=== PATIENT | male | born 1965 | race Caucasian/White ===

== ENCOUNTER 2019-08-11 21:50 | Inpatient (IN) ==
[2019-08-12] MEDS ORDERED: Naloxone 0.4 MG/ML INJ IVP PRN (00:28)
[2019-08-12] MEDS ORDERED: 0.9 % Sodium Chloride 1,000 ML IVC SCH (00:30)
--- NOTE | 2019-08-12 00:38 | Internal Med History&Physical ---
Date of Encounter: 08/12/19 Time of Encounter: 00:34 Internal Medicine - H&P: HPI Chief complaint: Bradycardia History of present illness: Mr. Raya is a 54 year old male with past medical history of hypertension, hyperlipidemia, seizures and atrial flutter/fib with slow ventricular response who presented initially to [facility] earlier today after his heart monitor company called around 1 PM to notify the patient that his monitor I detected multiple episodes of sinus pauses as long as 6.8 seconds with underlying atrial flutter and further added that he has had to notify patient's regional transfer liaison multiple times in the last few weeks because of increasing pauses and bradycardia. Patient was evaluated by Dr. Silva his regional transfer liaison on the fourth of this month who indicated no changes in medical management given that the patient was asymptomatic. Family states that they saw Dr. Silva on who ordered an echocardiogram and apparently increased his "blood pressure medicine" from 50 mg to 100 mg but the mother did not know the name of the medication that was increased. ED physician at [facility] discussed case with Dr Agueda robles who indicated that the cause of these may be due to sleep apnea and may not warrant intervention. Furthermore, she stated the monitoring company should not call unless pauses are 10 seconds. Given lack of symptoms, recommendation was for patient to follow-up with his physician this week. However, patient returned to [facility] later this afternoon after monitoring company informed him of a sinus pause of 13.5 seconds in the setting of atrial flutter without ventricular complexes. Patient again reported to be asymptomatic. During second evaluation patient's heart rate was noted to be in the 30s. External pacer pads were placed at [facility] but not used again because patient's mentation and blood pressure been remaining stable. On-call cardiology was again informed and recommended transfer to [facility] for further treatment. On my assessment patient was afebrile, hemodynamically stable with a heart rate in the 40s. Laboratory workup obtained at [facility] earlier this evening or relatively normal including patient's electrolytes and troponin. Pacemaker pads still in place. We will monitor on telemetry and observe overnight with cardiac evaluation to follow in the morning. Patient is full code for this admission. Past Med Surg Social Fam HX - Past Medical History Medical history: COPD, hyperlipidemia, hypertension, seizures, other Additional medical history: atrial flutter Psychiatric history: no psych history - Past Surgical History Additional surgical history: chest tube placement. rib fractures, collarbone surgery. robotic assisted right colon resection for colon mass - Social History Smoking Status: Current every day smoker Smokeless Tobacco Status: No Alcohol use: none Drug use: none - Family History Brother Hx Family Endocrine Disorder: Yes Internal Medicine - H&P: Meds Gabapentin [Neurontin] 600 mg PO BID 05/30/19 [History] Sodium Chloride [Sodium Chloride Tab] 1 gm PO TID 05/30/19 [History] amLODIPine [Norvasc] 5 mg PO BID 05/30/19 [History] carBAMazepine [Carbamazepine ER] 300 mg PO QID 05/30/19 [History] levETIRAcetam [Levetiracetam] 1,000 mg PO BID 05/30/19 [History] Albuterol Sulfate [Proventil Inhaler] 2 puff IH Q6HR 08/11/19 [History] Ipratropium/Albuterol Neb [Duoneb] 3 ml IH BID PRN 08/11/19 [History] Losartan Potassium [Cozaar] 100 mg PO DAILY 08/11/19 [History] Umeclidinium Brm/Vilanterol Tr [Anoro Ellipta 62.5-25 Mcg INH] 1 each IH DAILY PRN 08/11/19 [History] Allergy/AdvReac Type Severity Reaction Status Date / Time hydrochlorothiazide AdvReac Seizure Verified 08/12/19 16:18 All Systems PM: A 10-system review of systems was performed and is negative for pertinent findings except as documented above in the HPI. - Constitutional Constitutional: no chills, no fever(s), no night sweats - EENT Eyes: no change in vision, no discharge, no pain, no photophobia Ears: no ear discharge, no ear pain, no tinnitus Nose, mouth and throat: no dysphagia, no nasal discharge, no neck pain, no sore throat - Cardiovascular Cardiovascular ROS IM: no chest pain, no diaphoresis, no dyspnea, no lightheadedness, no palpitations, no syncope - Respiratory Respiratory: no cough, no dyspnea, no wheezing, no excessive phlegm production - Gastrointestinal Gastrointestinal: no abdominal pain, no diarrhea, no hematemesis, no hematochezia, no melena, no nausea, no vomiting - Musculoskeletal Musculoskeletal ROS IM: no numbness, no tingling - Integumentary Integumentary IM: no rash, no unusual bruising - Neurological Neurological ROS: no confusion, no convulsions, no focal weakness, no numbness, no tingling, no tremor(s) - Hematologic/Lymphatic Hematologic/Lymphatic: no easy bruising - Constitutional Vitals: Temp Pulse Resp BP Pulse Ox 98.2 F 48 16 165/95 90 08/12/19 00:24 08/12/19 00:24 08/12/19 00:24 08/12/19 00:24 08/12/19 00:24 Exam: General: Alert and oriented Skin:Normal color, no rash, no lesions. HEENT:EOM, pupils equal, round and reactive. Cardiovascular:Normal S1 & S2, no rubs, murmurs or gallops. No JVD. Pulse regular. Lungs:Normal breath sounds, no wheezes or crackles. Abdomen:Soft, non-tender, no rigidity. Extremities:No deformity, no edema or tenderness, no joint swelling or clubbing. Neurological:Normal cognition and motor skills. Pulses:Carotid and radial pulses normal +2. Rest of the physical exam is non contributory Internal Med - H&P Results - Labs CBC & Chem 7: 08/12/19 01:26 08/12/19 01:26 - Assessment and Plan (1) Bradycardia Current Visit: No Status: Acute Assessment and plan: Patient presenting with asymptomatic bradycardia with heart rate in the 30s to 40s with periodic sinus pauses the largest of which was reported to be 13.5 seconds. Patient currently followed by Dr. Silva. Transferred for possible placement of pacemaker. No evidence of cardiac ischemia at this time. -Telemetry -We will keep patient NPO for possible pacemaker placement in the morning -Consult cardiology (2) Atrial flutter Current Visit: No Status: Acute Assessment and plan: History of atrial flutter/fibrillation with slow ventricular response. Patient currently not on anticoagulation due to history of seizure and high risk for bleed. -Continue telemetry Qualifiers: Atrial flutter type: unspecified Qualified Code(s): I48.92 - Unspecified atrial flutter (3) Essential hypertension Current Visit: No Status: Acute Assessment and plan: Blood pressure stable. We will monitor (4) Nicotine dependence Current Visit: No Status: Acute Qualifiers: Nicotine product type: cigarettes Substance use status: unspecified nicotine-induced disorder Qualified Code(s): F17.219 - Nicotine dependence, cigarettes, with unspecified nicotine-induced disorders (5) DVT prophylaxis Current Visit: Yes Status: Acute Assessment and plan: Intermittent pneumatic compression devices - Time Spent With Patient Total time spent is greater than 50% in coordination of care (as documented) at patient's floor/unit and/or counseling patient:
[2019-08-12 01:38] LABS: Basophils # 0.1 K/mcL (0.0-0.2); Basophils % 1.3 %; Hematocrit 47.6 % (37.5-50.1); Hemoglobin 15.6 g/dL (12.9-16.9); Immature Granulocytes % 0.3 % (0-4); Lymphocytes # 1.8 K/mcL (0.6-4.6); Mean Corpuscular HGB Conc 32.8 g/dL (31.6-35.5); Mean Corpuscular Hemoglobin 31.3 pg (28.0-33.3); Mean Corpuscular Volume 95.4 fL (83.0-100.0); Mean Platelet Volume 9.7 fL (9.4-12.4); Monocytes # 0.3 K/mcL (0.0-1.3); Monocytes % 8.7 %; Neutrophils # 1.8 K/mcL (1.6-8.9); Platelet Count 142 K/mcL (140-400); Red Blood Count 4.99 M/mcL (4.19-5.50); Red Cell Distribution Width 13.6 % (11.5-14.5); Segmented Neutrophils % 44.7 %; White Blood Count 3.9 K/mcL (4.3-11.1)
[2019-08-12 01:49] LABS: Activated Partial Thrombo Time 35.5 Seconds (26.0-36.0)
[2019-08-12 02:23] LABS: Troponin I < 0.03 ng/mL (< 0.04)
[2019-08-12 02:59] LABS: Alanine Aminotransferase 10 Units/L (7-52); Albumin 3.6 g/dL (3.5-5.7); Albumin/Globulin Ratio 1.3 (1.1-2.2); Alkaline Phosphatase 123 Units/L (34-104); Aspartate Amino Transferase 13 Units/L (13-39); BUN/Creatinine Ratio 12 (6-26); Bilirubin,Total 0.3 mg/dL (0.3-1.0); Blood Urea Nitrogen 7 mg/dL (6-20); Calcium 9.2 mg/dL (8.6-10.3); Carbon Dioxide 24 mEq/L (23-29); Chloride 102 mEq/L (98-107); Globulin 2.8 g/dL (2.4-3.5); Glucose 111 mg/dL (70-105); Magnesium 2.2 mg/dL (1.6-2.6); Osmolality,Calculated 281 (280-300); Potassium 4.5 mEq/L (3.5-5.1); Sodium 136 mEq/L (136-145); Total Protein 6.4 g/dL (6.4-8.9); eGFR For African Americans > 60 (> 60); eGFR For Non-African Americans > 60 (> 60)
--- NOTE | 2019-08-12 09:58 | Cardiology Consult Note ---
<Maurice Gale R - Last Filed: 08/12/19 09:48> Date of Encounter: 08/12/19 Time of Encounter: 09:48 Assessment and Plan (1) Atrial flutter Current Visit: No Status: Acute Recent A-Flutter with slow ventricular response diagnosis, unclear chronicity, persistent. On Norvasc and Losartan, but no BB. Avoid AV concha blockers. Seen by Dr. Silva outpt on 08/09. 2 week MCOT was pending, TSH and TTE ordered, not yet completed. Will order inpt TTE and TSH. Mag K WNL. Monitoring company informed him of a pause of 13.5 seconds in atrial flutter. Pt is asymptomatic. Denies dizziness, lightheadedness, or syncope. Currently A-Flutter at bedside, HR 40s-50s while awake. 12 hr tele AVG HR 46. Lowest HR 27--nocturnal hours. Longest pause 4.1 seconds- noctural. Given bradycardia and pauses, up to 13.5 seconds noted on MCOT, recommend EP consult tomorrow to evaluate for PPM insertion. Unclear if all pauses are during nocturnal hours/sleeping. [id number] (HTN). Pt has frequent seizures with traumas, left sided paralysis, high falls and bleeding risk. Full AC has not been recommended. Qualifiers: Atrial flutter type: unspecified Qualified Code(s): I48.92 - Unspecified atrial flutter (2) Bradycardia Current Visit: No Status: Acute Plan detailed above. Discussion w patient/family: The assessment and plan as outlined above was discussed with the patient and/or family members who expressed understanding and agreement. All questions were answered. Thank you for involving us in the care of your patient. Please call with any questions. I will discuss all the above with Dr. Kern and make changes as necessary. History of Present Illness Consult date: 08/12/19 Consult reason: slow ventricular response, pauses History of present illness: Mr. Raya is a 54 year old male with PMH of HTN, HLD, left sided weakness/paralysis uses motorized chair, seizures and atrial flutter/fib with sl ow ventricular response recently diagnosed, but of unclear duration, who presented initially to [facility] yesterday after [employer] company notified pt of pauses as long as 6.8 seconds with underlying atrial flutter. Given lack of symptoms, recommendation was for patient to follow-up with his physician this week. However, patient returned to [place] later yesterday afternoon after monitoring company informed him of a pause of 13.5 seconds in atrial flutter. Pt is asymptomatic. Denies dizziness, lightheadedness, or syncope. Denies chest pain or dyspnea. Cardiology consulted for further recs. Past Med Surg Social Fam HX - Past Medical History Medical history: atrial fibrillation, COPD, hyperlipidemia, hypertension, se izures, other Additional medical history: atrial flutter Psychiatric history: no psych history - Past Surgical History Additional surgical history: chest tube placement. rib fractures, collarbone surgery. robotic assisted right colon resection for colon mass - Social History Smoking Status: Current every day smoker Smokeless Tobacco Status: No Alcohol use: none Drug use: none - Family History Brother Hx Family Endocrine Disorder: Yes Medications and Allergies Gabapentin [Neurontin] 1,200 mg PO BID 05/30/19 [History] Sodium Chloride [Sodium Chloride Tab] 1 gm PO TID 05/30/19 [History] amLODIPine [Norvasc] 5 mg PO BID 05/30/19 [History] carBAMazepine [Carbamazepine ER] 300 mg PO TID 05/30/19 [History] levETIRAcetam [Levetiracetam] 1,000 mg PO BID 05/30/19 [History] Albuterol Sulfate [Proventil Inhaler] 2 puff IH Q6HR 08/11/19 [History] Ipratropium/Albuterol Neb [Duoneb] 3 ml IH Q6HR 08/11/19 [History] Losartan Potassium [Cozaar] 100 mg PO DAILY 08/11/19 [History] Umeclidinium Brm/Vilanterol Tr [Anoro Ellipta 62.5-25 Mcg INH] 1 each IH DAILY 08/11/19 [History] Allergy/AdvReac Type Severity Reaction Status Date / Time hydrochlorothiazide AdvReac Seizure Verified 08/11/19 20:45 All Systems Review: The remainder of the systems were reviewed and are negative - Cardiovascular Cardiovascular: as per HPI Physical Examination Vital Signs, Last 4 Hours Temp Pulse Resp BP Pulse Ox 08/12/19 07:20 98.6 F 55 16 164/94 93 08/12/19 07:10 42 Vital Signs Temp Pulse Resp BP Pulse Ox 08/12/19 07:20 98.6 F 55 16 164/94 93 08/12/19 07:10 42 08/12/19 03:50 98.3 F 42 16 140/99 93 08/12/19 00:59 92 08/12/19 00:24 98.2 F 48 16 165/95 90 Intake and Output 08/11/19 08/12/19 08/12/19 23:59 07:59 15:59 Output Total 400 / 400 Balance -400 / -400 Output: Urine 400 / 400 Other: Weight 76.5 kg Blood Glucose* 88 Patient Weight 08/12/19 23:59 Weight 76.5 kg General: Conversant, No Apparent Distress HEENT: Atraumatic, Normocephaly, Mucus Membranes Moist Neck: No JVD, Normal carotid pulses Cardiac: Other (irregular) Lungs: Normal Breath Sounds, No Wheeze, Rales, Rhonchi Neuro: Alert and responsive, No focal deficits noted Abdomen: Soft, Non-Tender Skin: No rashes noted on visualized skin Musculoskeletal: No Chest Wall Tenderness Extremities: No Clubbing, No Cyanosis, No Edema, Normal Pulses Results 08/12/19 01:26 08/12/19 01:26 Lab Results 08/12/19 08/12/19 08/12/19 01:26 01:26 01:26 WBC 3.9 L Hgb 15.6 Hct 47.6 Plt Count 142 INR 1.0 APTT 35.5 Sodium 136 Potassium 4.5 Chloride 102 Carbon Dioxide 24 BUN 7 Creatinine 0.58 L Glucose 111 H Calcium 9.2 Magnesium 2.2 Total Bilirubin 0.3 AST 13 ALT 10 Alkaline Phosphatase 123 H Troponin I < 0.03 B-Natriuretic Peptide 08/12/19 01:26 WBC Hgb Hct Plt Count INR APTT Sodium Potassium Chloride Carbon Dioxide BUN Creatinine Glucose Calcium Magnesium Total Bilirubin AST ALT Alkaline Phosphatase Troponin I B-Natriuretic Peptide 53 Short CBC 08/12/19 Range/Units 01:26 WBC 3.9 L (4.3-11.1) K/mcL Hgb 15.6 (12.9-16.9) g/dL Hct 47.6 (37.5-50.1) % Plt Count 142 (140-400) K/mcL Neutrophils # 1.8 (1.6-8.9) K/mcL BMP 08/12/19 Range/Units 01:26 Sodium 136 (136-145) mEq/L Potassium 4.5 (3.5-5.1) mEq/L Chloride 102 (98-107) mEq/L Carbon Dioxide 24 (23-29) mEq/L BUN 7 (6-20) mg/dL Creatinine 0.58 L (0.70-1.30) mg/dL Glucose 111 H (70-105) mg/dL Calcium 9.2 (8.6-10.3) mg/dL Cardiac Enzymes 08/12/19 Range/Units 01:26 Troponin I < 0.03 (< 0.04) ng/mL Liver Function 08/12/19 Range/Units 01:26 Total Bilirubin 0.3 (0.3-1.0) mg/dL AST 13 (13-39) Units/L ALT 10 (7-52) Units/L Alkaline Phosphatase 123 H (34-104) Units/L Albumin 3.6 (3.5-5.7) g/dL Active Medications Sodium Chloride (0.9 % Sodium Chloride) 1,000 mls @ 75 mls/hr IVC .[id number] DESTINI Stop: 08/12/19 13:49 Last Admin: 08/12/19 00:46 Dose: 75 mls/hr Documented by: Naloxone HCl (Narcan) 0.4 mg IVP Q2MPRN PRN PRN Reason: SEE COMMENTS Stop: 02/11/20 00:29 - EKG Interpretation EKG results cardiology: personally reviewed (A-Flutter, rate 60s.), other (12 hr tele AVG HR 46, A-Flutter. Lowest HR 27 A-Flutter during nocturnal hours. Longest pause 4.1 seconds nocturnal hours.) Consult Discharge Plan - Plan Referrals: NONE,PCP [Primary Care Provider] - <Camelia Kern - Last Filed: 08/12/19 11:39> Date of Encounter: 08/12/19 - Attending Attestation I examined this patient and my medical decision-making was reviewed with the SR. [employer]OR. I agree with the documented findings, disposition and treatment plan as described. Assessment and Plan Discussion w patient/family: The assessment and plan as outlined above was discussed with the patient and/or family members who expressed understanding and agreement. All questions were answered. Thank you for involving us in the care of your patient. Please call with any questions. History of Present Illness History of present illness: Mr. Raya is a 54 year old male All Systems Review: The remainder of the systems were reviewed and are negative Results 08/12/19 01:26 08/12/19 01:26 Lab Results 08/12/19 08/12/19 08/12/19 01:26 01:26 01:26 WBC 3.9 L Hgb 15.6 Hct 47.6 Plt Count 142 INR 1.0 APTT 35.5 Sodium 136 Potassium 4.5 Chloride 102 Carbon Dioxide 24 BUN 7 Creatinine 0.58 L Glucose 111 H Calcium 9.2 Magnesium 2.2 Total Bilirubin 0.3 AST 13 ALT 10 Alkaline Phosphatase 123 H Troponin I < 0.03 B-Natriuretic Peptide 08/12/19 01:26 WBC Hgb Hct Plt Count INR APTT Sodium Potassium Chloride Carbon Dioxide BUN Creatinine Glucose Calcium Magnesium Total Bilirubin AST ALT Alkaline Phosphatase Troponin I B-Natriuretic Peptide 53
--- NOTE | 2019-08-12 11:05 | Event Note ---
Date of Encounter: 08/12/19 Time of Encounter: 09:30 H&P reviewed. 54-year-old male with history of hypertension and atrial fibrillation with slow ventricular rate was admitted overnight due to asymptomatic sinus pause, up to 13.5secs. Overnight HR averages around 46 with the lowest HR 27. Serial troponins negative. TSH, TTE ordered and will follow with cardiology for possible need for EP consultation during hospitalization.
[2019-08-12] MEDS: levETIRAcetam 250 MG TABLET PO SCH (19:58)
[2019-08-12] MEDS: CarBAMazepine XR (12 hr) 100 MG TAB PO SCH (19:58)
[2019-08-12] MEDS: amLODIPine 5 MG TABLET PO SCH (19:58)
[2019-08-12] MEDS: Ipratropium/Albuterol Neb 3 ML IH SCH (21:52)
[2019-08-13] MEDS: Ipratropium/Albuterol Neb 3 ML IH SCH ×4 (03:49→22:42)
[2019-08-13] MEDS: CarBAMazepine XR (12 hr) 100 MG TAB PO SCH ×3 (07:25→21:05)
[2019-08-13] MEDS: levETIRAcetam 250 MG TABLET PO SCH ×2 (07:25→21:05)
[2019-08-13] MEDS: amLODIPine 5 MG TABLET PO SCH ×2 (07:26→17:38)
[2019-08-13] MEDS: Nicotine 21 MG PATCH.TD24 TD SCH (09:08)
--- NOTE | 2019-08-13 09:47 | Electrophysiology Consult Note ---
<Adalberto Arrieta - Last Filed: 08/13/19 10:18> Date of Encounter: 08/13/19 Time of Encounter: 09:40 Assessment and Plan (1) Atrial flutter Status: Acute Per EP: Previous records reviewed: "Recent A-Flutter with slow ventricular response diagnosis, unclear chronicity, persistent. On Norvasc and Losartan, but no BB. Avoid AV concha blockers. Seen by Dr. Silva outpt on 08/09. 2 week MCOT was pending. [facility] informed him of a pause of 13.5 seconds in atrial flutter. Pt is asymptomatic. Denies dizziness, lightheadedness, or syncope. [id number] 1 (HTN). Pt has frequent seizures with traumas, left sided paralysis, high falls and bleeding risk. Full AC has not been recommended". Troponin negative 1, BNP 53, magnesium, potassium, and TSH WNL. Tele last 24 h ours: avg HR 57, atrial flutter, currently atrial flutter in the 40s, longest pause 4.7 seconds. Echo pending. We will attempt to obtain MCOT strips from [employer]. Will discuss and review with Dr. Roddy Garcia possible pacemaker insertion. Patient and family agreeable to pacer insertion if recommended. All questions answered. Qualifiers: Atrial flutter type: unspecified Qualified Code(s): I48.92 - Unspecified atrial flutter Discussion w patient/family: The assessment and plan as outlined above was discussed with the patient and/or family members who expressed understanding and agreement. All questions were answered. Thank you for involving us in the care of your patient. Please call with any questions. History of Present Illness Consult date: 08/13/19 Requesting physician: Maurice Gale Consult reason: Aflutter SVR History of present illness: Mr. Raya is a 54 year old male with a relevant past medical history of HTN, HLD, COPD, seizures, history of atrial fibrillation/atrial flutter, left-sided paralysis with utilization motorized chair. EP consult for atrial flutter with slow ventricular response and significant pauses. Evaluation for possible pacemaker insertion. Patient was wearing outpatient MCOT and notified by [facility] of pause of 6.8 seconds with atrial flutter and presented to the ER. He apparently was asymptomatic and sent home to follow-up as outpatient. However, patient notified by monitoring company again of pause of 13.5 seconds with underlying atrial flutter. Patient seen with family today at bedside. He denied any symptoms at time of events. Currently denies any symptoms. He denies any chest pain, short of breath, palpitations, dizziness, syncope. Mother reports patient had seizure at 10 months old with subsequent left-sided permanent paralysis. Past Med Surg Social Fam HX - Past Medical History Attestation: Yes The following information was validated with the patient. Source: patient, old records reviewed, obtained from family Medical history: atrial fibrillation, COPD, hyperlipidemia, hypertension, seizures, other Additional medical history: atrial flutter Psychiatric history: no psych history - Past Surgical History Additional surgical history: chest tube placement. rib fractures, collarbone surgery. robotic assisted right colon resection for colon mass - Social History Smoking Status: Current every day smoker Smokeless Tobacco Status: No Alcohol use: none Drug use: none - Family History Brother Hx Family Endocrine Disorder: Yes Medications and Allergies Gabapentin [Neurontin] 600 mg PO BID 05/30/19 [History] Sodium Chloride [Sodium Chloride Tab] 1 gm PO TID 05/30/19 [History] amLODIPine [Norvasc] 5 mg PO BID 05/30/19 [History] carBAMazepine [Carbamazepine ER] 300 mg PO QID 05/30/19 [History] levETIRAcetam [Levetiracetam] 1,000 mg PO BID 05/30/19 [History] Albuterol Sulfate [Proventil Inhaler] 2 puff IH Q6HR 08/11/19 [History] Ipratropium/Albuterol Neb [Duoneb] 3 ml IH BID PRN 08/11/19 [History] Losartan Potassium [Cozaar] 100 mg PO DAILY 08/11/19 [History] Umeclidinium Brm/Vilanterol Tr [Anoro Ellipta 62.5-25 Mcg INH] 1 each IH DAILY PRN 08/11/19 [History] Allergy/AdvReac Type Severity Reaction Status Date / Time hydrochlorothiazide AdvReac Seizure Verified 08/12/19 16:18 All Systems Review: The remainder of the systems were reviewed and are negative - Cardiovascular Cardiovascular: as per HPI - Musculoskeletal Musculoskeletal: other (Left-sided paralysis) Physical Examination Vital Signs, Last 4 Hours Temp Pulse Resp BP Pulse Ox 08/13/19 07:39 98.1 F 39 16 160/96 93 08/13/19 07:31 36 Selected Entries 08/13/19 07:31 08/13/19 07:39 Pulse Rate 36 39 Respiratory Rate 16 Blood Pressure 160/96 O2 Sat by Pulse Oximetry 93 Oxygen Flow Rate (LPM) 2 Oxygen Delivery Method Nasal Cannula General: Conversant, No Apparent Distress HEENT: Atraumatic, Normocephaly, Mucus Membranes Moist Neck: No JVD, Normal carotid pulses Cardiac: Reg Rate and Rhythm, Normal S1 and S2, No Murmur Lungs: Normal Breath Sounds, No Wheeze, Rales, Rhonchi Neuro: Alert and responsive, No focal deficits noted Abdomen: Soft, Non-Tender Skin: No rashes noted on visualized skin Musculoskeletal: No Chest Wall Tenderness, Other (no movement to left side) Extremities: No Clubbing, No Cyanosis, No Edema, Normal Pulses Results 08/12/19 01:26 08/12/19 01:26 Lab Results Laboratory Tests 08/12/19 08/12/19 08/12/19 01:26 01:26 01:26 Hgb 15.6 Hct 47.6 INR 1.0 Potassium 4.5 Creatinine 0.58 L Est GFR (Non-Af Amer) > 60 Magnesium 2.2 AST 13 ALT 10 Troponin I < 0.03 B-Natriuretic Peptide TSH 08/12/19 08/13/19 01:26 00:22 Hgb Hct INR Potassium Creatinine Est GFR (Non-Af Amer) Magnesium AST ALT Troponin I B-Natriuretic Peptide 53 TSH 1.194 Current Medications Generic Name Dose Route Start Last Admin Trade Name Freq PRN Reason Stop Dose Admin Albuterol/Ipratropium 3 ml 08/12/19 22:00 08/13/19 03:49 Duoneb IH 02/11/20 22:01 3 ml [id number] DESTINI Administration Amlodipine Besylate 5 mg 08/12/19 21:00 08/13/19 07:26 Norvasc PO 02/11/20 21:01 5 mg BID DESTINI Administration Protocol Carbamazepine 300 mg 08/12/19 21:00 08/13/19 07:25 Tegretol Xr PO 02/11/20 21:01 300 mg TID DESTINI Administration Levetiracetam 1,000 mg 08/12/19 21:00 08/13/19 07:25 Keppra PO 02/11/20 21:01 1,000 mg BID DESTINI Administration Losartan Potassium 100 mg 08/13/19 09:00 08/13/19 07:26 Cozaar PO 02/12/20 09:01 100 mg DAILY DESTINI Administration Naloxone HCl 0.4 mg 08/12/19 00:28 Narcan IVP 02/11/20 00:29 Q2MPRN PRN SEE COMMENTS Nicotine 21 mg 08/13/19 09:00 08/13/19 09:08 Nicoderm TD 02/12/20 09:01 21 mg DAILY DESTINI Administration Protocol Pharmacy Profile Note 1 each 08/13/19 09:00 08/13/19 07:27 Patient Taking Own Medication IH 02/12/20 09:01 Not Given DAILY DESTINI Sodium Chloride 1 gm 08/12/19 21:00 08/13/19 07:25 Sodium Chloride PO 02/11/20 21:01 1 gm TID DESTINI Administration Intake and Output 08/12/19 08/13/19 08/13/19 23:59 07:59 15:59 Intake Total 0 / 0 Output Total 375 / 375 Balance -375 / -375 0 / -375 Intake: Oral 0 / 0 Output: Urine 375 / 375 Other: Meal Dinner NPO Percent of Meal Consumed 75% 0% - Imaging and Cardiology Echo: pending - EKG Interpretation EKG results cardiology: personally reviewed (aflutter with SVR, rate 31) Consult Discharge Plan - Plan Instructions: Atrial Flutter (DC), Chronic Hypertension (DC) Additional Instructions: ACTIVITY: Moderate activity for the next 7 days. No lifting more than 5 pounds (gallon of milk) for 4-6 weeks. Avoid lifting your arm on the same side as the device for 4 weeks. BATHING /SHOWERING: Do not remove the large bandage over the site for 2 days. Do not allow the device to get wet for 7-10 days. You may bathe/shower, but do not use soap and water on the site. When bathing, keep the site dry by covering with Saran wrap or a towel. WOUND CARE: The white steri-strips will start to peel away and come off after 14 days, or your doctor will remove them after [address] anything into or on top of the incision. Do not use cotton swabs. Do not use any antibiotic ointment or Vitamin E on the site. REMINDERS: You may use electrical devices, such as, microwaves, hair dryers, electric razors, electric blankets, etc. as long as they are in good condition and kept 6-8 inches away from the device. It is recommended to use cell phones on the opposite side of your device. Notify security personnel at the airport that you have a device before you go through airport security screening. When at places with security monitors, such as a grocery store, do not linger near these monitors. It is fine to walk past them in a normal manner. Refer to your owners manual for more specific directions. CARRY YOUR PACEMAKER/ICD CARD WITH YOU AT ALL TIMES Return to work as instructed per physician Resume driving as instructed per physician Keep all scheduled follow up appointments Resume medications as instructed Contact [facility] ( ) if: You develop excessive bleeding from insertion or wound site not controlled by applying pressure You develop a fever greater than 101 degrees Fahrenheit Your incision becomes reddened at or around the site Your incision develops yellowish or greenish drainage or development of white pimple-like bumps You experience excessive pain You develop swelling in your ankles You experience muscle switching You develop excessive hiccupping If you experience chest pain, shortness of breath, dizziness, or extreme tiredness, stop the activity and rest. Please notify [facility] office if you experience any of these symptoms and they are not relieved by rest please call 911! Referrals: Leti Kang CNP [Advanced Practice Nurse] - 08/22/19 11:00 am Yolanda Silva MD [Non-Partnered Physician] - 09/20/19 11:10 am <Roddy Garcia - Last Filed: 08/15/19 16:02> Date of Encounter: 08/15/19 - Attending Attestation I have personally performed a face to face evaluation on this patient. I have reviewed and agree with the care plan. History and Exam by me shows: Atrial flutter of unknown duration. Significant bradycardia with pauses up to 5 seconds, recommend pacemaker. Assessment and Plan Discussion w patient/family: The assessment and plan as outlined above was discussed with the patient and/or family members who expressed understanding and agreement. All questions were answered. Thank you for involving us in the care of your patient. Please call with any questions. History of Present Illness History of present illness: Mr. Raya is a 54 year old male All Systems Review: The remainder of the systems were reviewed and are negative Results 08/12/19 01:26 08/14/19 04:42
[2019-08-13] MEDS ORDERED: CeFAZolin Syr 2,000MG/20 ML 2,000 MG/20 ML SYRINGE IVPB ONE (11:03)
--- NOTE | 2019-08-13 11:05 | Internal Med Progress Note ---
Hospitalist Progress Note - Encounter Date of Encounter: 08/13/19 Time of Encounter: 09:45 - Subjective Interval History: No acute events overnight. Patient continues to deny any lightheadedness, chest pain, palpitation, nausea/vomiting, or diaphoresis. - Exam Vitals: Temp Pulse Resp BP Pulse Ox 98.1 F 39 16 160/96 93 08/13/19 07:39 08/13/19 07:39 08/13/19 10:54 08/13/19 07:39 08/13/19 10:54 Exam: General: Alert and oriented Cardiovascular:Normal S1 & S2, bradycardic. No rubs, murmurs or gallops. Lungs:Normal breath sounds, no wheezes or crackles. Abdomen:Soft, non-tender, no rigidity. Extremities:No deformity, no edema or tenderness, no joint swelling or clubbing. Neurological: Grossly non-focal - Assessment and Plan (1) Bradycardia Current Visit: Yes Status: Acute Assessment and Plan: Was informed to have sinus pause > 10 secs. Asymptomatic bradycardia noted on presentation with average HR in the 40s Serial troponins negative, EKG nonischemic. Mg/K WNL, TSH unremarkable Echo pending For EP consultation today (2) Atrial flutter Current Visit: Yes Status: Acute Assessment and Plan: Associated with slow ventricular rate, for EP evaluation as above CHADVASC 1, not on AC due to frequent seizures with trauma and high fall risk (3) Seizure Current Visit: Yes Status: Chronic Assessment and Plan: Resume Tegretol and Keppra (4) Essential hypertension Current Visit: Yes Status: Chronic Assessment and Plan: Resume home meds (5) Nicotine dependence Current Visit: No Status: Acute Assessment and Plan: Nicotine replacement therapy (6) DVT prophylaxis Current Visit: Yes Status: Acute Assessment and Plan: EPCD - Time Spent with Patient Total time spent is greater than 50% in coordination of care (as documented) at patient's floor/unit and/or counseling patient: 25 - 35 minutes Plan of Care Discussed with: family Internal Medicine: Result - Labs CBC & Chem 7: 08/12/19 01:26 08/12/19 01:26 - ABG Interpretation ABG results: PT/INR, D-dimer PT 11.0 Seconds (9.4-12.1) 08/12/19 01:26 - VTE Documentation of Mechanical Device: Intermittent pneumatic compression device Consult Discharge Plan - Plan Referrals: NONE,PCP [Primary Care Provider] - (2) Atrial flutter Qualifiers: Atrial flutter type: unspecified Qualified Code(s): I48.92 - Unspecified atrial flutter (5) Nicotine dependence Qualifiers: Nicotine product type: cigarettes Substance use status: unspecified nicotine- induced disorder Qualified Code(s): F17.219 - Nicotine dependence, cigarettes, with unspecified nicotine-induced disorders
--- NOTE | 2019-08-13 11:06 | Event Note ---
Date of Encounter: 08/13/19 Time of Encounter: 11:00 - Cardiology Event Note Discussed and reviewed with Dr. Roddy Garcia, plan for pacemaker today. Echo pending.
[2019-08-13] MEDS ORDERED: 0.9 % Sodium Chloride 500 ML ONE (13:09)
[2019-08-13] MEDS ORDERED: 0.9 % Sodium Chloride 1,000 ML ONE (13:37)
[2019-08-13] MEDS ORDERED: *HR* Midazolam HCl 2 MG/2 ML VIAL ONE (13:42)
[2019-08-13] MEDS ORDERED: *HR* FentaNYL (PF) 100 MCG/2 ML VIAL ONE (13:43)
--- NOTE | 2019-08-13 13:47 | Pre-Sedation Evaluation ---
Pre-sedation evaluation - Pre-sedation checklist Date of procedure: 08/13/19 Procedure: Pacer placement Recent Vitals: Last Vital Signs Temp 97.6 F 08/13/19 11:44 Pulse 37 08/13/19 11:44 Resp 16 08/13/19 11:44 BP 162/87 08/13/19 11:44 Pulse Ox 94 08/13/19 11:44 H&P (including ROS) documented in medical record: Yes Previous reaction to sedatives/anesthetics: No Dietary Status: NPO after Midnight Airway Assessment: Patient can open mouth completely, TMJ function normal, Micrognathia (under-bite, receding chin) absent Dentition: No loose teeth or bridges Possible difficult airway: No ASA Classification *see protocol: CLASS II-Mild systemic disease Plan of Care: Pt appropriate candidate for procedure/moderate/conscious sedation, Risks/benefits of procedure/sedation discussed w/ patient/family
[2019-08-13] MEDS ORDERED: Acetaminophen 325 MG TABLET PO PRN (14:50)
[2019-08-13] MEDS ORDERED: *HR* OxyCODONE Immed Rel 5 MG TABLET PO PRN (14:50)
[2019-08-13] MEDS ORDERED: *HR* Metoprolol 5 MG/5 ML VIAL IVP ONE (15:42)
[2019-08-13] MEDS ORDERED: *HR* Labetalol 20 MG/4 ML SYRINGE IVP PRN (17:26)
[2019-08-14] MEDS: Ipratropium/Albuterol Neb 3 ML IH SCH ×2 (04:30→10:49)
[2019-08-14 05:30] LABS: BUN/Creatinine Ratio 15 (6-26); Blood Urea Nitrogen 8 mg/dL (6-20); Carbon Dioxide 22 mEq/L (23-29); Chloride 100 mEq/L (98-107); Potassium 4.1 mEq/L (3.5-5.1); Sodium 131 mEq/L (136-145); eGFR For African Americans > 60 (> 60); eGFR For Non-African Americans > 60 (> 60)
[2019-08-14] MEDS: CarBAMazepine XR (12 hr) 100 MG TAB PO SCH (07:38)
[2019-08-14] MEDS: amLODIPine 5 MG TABLET PO SCH (07:38)
[2019-08-14] MEDS: Nicotine 21 MG PATCH.TD24 TD SCH (07:38)
[2019-08-14] MEDS: levETIRAcetam 250 MG TABLET PO SCH (07:38)
[2019-08-14 07:52] VITALS: BP 138/103
--- NOTE | 2019-08-14 09:04 | Discharge Summary ---
- NOTES TO OUTPATIENT PROVIDER Notes to Outpatient Provider: Follow-up with EP as outpatient Date of Encounter: 08/14/19 Time of Encounter: 07:15 - Discharge Diagnosis (1) Bradycardia Priority: Primary Status: Acute (2) Atrial flutter Priority: Secondary Status: Acute Qualifiers: Atrial flutter type: unspecified Qualified Code(s): I48.92 - Unspecified atrial flutter (3) Seizure Priority: Secondary Status: Chronic (4) Essential hypertension Priority: Secondary Status: Chronic (5) Nicotine dependence Priority: Secondary Status: Acute Qualifiers: Nicotine product type: cigarettes Substance use status: unspecified nicotine-induced disorder Qualified Code(s): F17.219 - Nicotine dependence, cigarettes, with unspecified nicotine-induced disorders (6) DVT prophylaxis Priority: Secondary Status: Acute Hospital course: Mr. Raya is a 54 year old male with history of hypertension and atrial fibrillation with slow ventricular rate who was admitted due to asymptomatic sinus pause, up to 13.5secs. Also noted to be bradycardic on average with HR ~ mid 40s. Serial troponins negative. TSH/electrolytes WNL, TTE showed preserved EF without significant valvular disease. Pt underwent single-chamber pacemaker insertion uneventfully on 08/13 and discharged on 08/14. Discharge discussed with: patient, nurse, search engine optimization consultant - Time Spent with Patient Total time spent providing and/or coordinating discharge services: 32 mins - Discharge Medications Prescriptions: Continued Sodium Chloride [Sodium Chloride Tab] 1 gm PO TID levETIRAcetam [Levetiracetam] 1,000 mg PO BID amLODIPine [Norvasc] 5 mg PO BID carBAMazepine [Carbamazepine ER] 300 mg PO QID Gabapentin [Neurontin] 600 mg PO BID Losartan Potassium [Cozaar] 100 mg PO DAILY Albuterol Sulfate [Proventil Inhaler] 2 puff IH Q6HR Ipratropium/Albuterol Neb [Duoneb] 3 ml IH BID PRN PRN Reason: Shortness Of Breath Umeclidinium Brm/Vilanterol Tr [Anoro Ellipta 62.5-25 Mcg INH] 1 each IH DAILY PRN PRN Reason: BREATHING Home Medications: Gabapentin [Neurontin] 600 mg PO BID 05/30/19 [History] Sodium Chloride [Sodium Chloride Tab] 1 gm PO TID 05/30/19 [History] amLODIPine [Norvasc] 5 mg PO BID 05/30/19 [History] carBAMazepine [Carbamazepine ER] 300 mg PO QID 05/30/19 [History] levETIRAcetam [Levetiracetam] 1,000 mg PO BID 05/30/19 [History] Albuterol Sulfate [Proventil Inhaler] 2 puff IH Q6HR 08/11/19 [History] Ipratropium/Albuterol Neb [Duoneb] 3 ml IH BID PRN 08/11/19 [History] Losartan Potassium [Cozaar] 100 mg PO DAILY 08/11/19 [History] Umeclidinium Brm/Vilanterol Tr [Anoro Ellipta 62.5-25 Mcg INH] 1 each IH DAILY PRN 08/11/19 [History] Allergies/Adverse Reactions: Allergy/AdvReac Type Severity Reaction Status Date / Time hydrochlorothiazide AdvReac Seizure Verified 08/12/19 16:18 Date of admission: 08/13/19 14:59 Primary care physician: PCP NONE Consults: 08/12/19 00:29 Consult to Cardiology [CONS] Routine Comment: Consulting Provider: Cardiology Veena Reason for Consult: Bradycardia with sinus pauses Call Completed: No 08/12/19 11:45 Consult to Electrophysiology (EP) [CONS] Routine Consulting Provider: Electrophysiology Veena Reason for Consult: PPM evaluation Call Completed: Yes - Constitutional Vitals: Temp Pulse Resp BP Pulse Ox 97.8 F 59 18 138/103 92 08/14/19 07:48 08/14/19 07:48 08/14/19 07:48 08/14/19 07:48 08/14/19 07:48 Exam: General: Alert and oriented Cardiovascular:Normal S1 & S2, Normal rate. No rubs, murmurs or gallops. L chest wall dressing c/d/i Lungs:Normal breath sounds, no wheezes or crackles. Abdomen:Soft, non-tender, no rigidity. Extremities:No deformity, no edema or tenderness, no joint swelling or clubbing. Neurological: Grossly non-focal - Patient Status Disposition: Home, Self-Care Condition: Fair Functional capacity at discharge: independent ambulation Overall status at discharge: patient is progressing back to baseline - Discharge Instructions Instructions: Atrial Flutter (DC), Chronic Hypertension (DC) Follow Up With: NONE,PCP [Primary Care Provider] - Roddy Garcia MD [Partnered Physician] - Additional Instructions: ACTIVITY: Moderate activity for the next 7 days. No lifting more than 5 pounds (gallon of milk) for 4-6 weeks. Avoid lifting your arm on the same side as the device for 4 weeks. BATHING /SHOWERING: Do not remove the large bandage over the site for 2 days. Do not allow the device to get wet for 7-10 days. You may bathe/shower, but do not use soap and water on the site. When bathing, keep the site dry by covering with Saran wrap or a towel. WOUND CARE: The white steri-strips will start to peel away and come off after 14 days, or your doctor will remove them after [address] anything into or on top of the incision. Do not use cotton swabs. Do not use any antibiotic ointment or Vitamin E on the site. REMINDERS: You may use electrical devices, such as, microwaves, hair dryers, electric razors, electric blankets, etc. as long as they are in good condition and kept 6-8 inches away from the device. It is recommended to use cell phones on the opposite side of your device. Notify security personnel at the airport that you have a device before you go through airport security screening. When at places with security monitors, such as a grocery store, do not linger near these monitors. It is fine to walk past them in a normal manner. Refer to your owners manual for more specific directions. CARRY YOUR PACEMAKER/ICD CARD WITH YOU AT ALL TIMES Return to work as instructed per physician Resume driving as instructed per physician Keep all scheduled follow up appointments Resume medications as instructed Contact [facility] ( ) if: You develop excessive bleeding from insertion or wound site not controlled by applying pressure You develop a fever greater than 101 degrees Fahrenheit Your incision becomes reddened at or around the site Your incision develops yellowish or greenish drainage or development of white pimple-like bumps You experience excessive pain You develop swelling in your ankles You experience muscle switching You develop excessive hiccupping If you experience chest pain, shortness of breath, dizziness, or extreme tiredness, stop the activity and rest. Please notify [facility] office if you experience any of these symptoms and they are not relieved by rest please call 911! - Diet and Activity Activity: resume usual activities as tolerated Diet: low salt diet - VTE Documentation of Mechanical Device: Intermittent pneumatic compression device
--- NOTE | 2019-08-14 09:26 | Electrophysiology ProgressNote ---
Date of Encounter: 08/14/19 Time of Encounter: 09:00 Assessment and Plan (1) Atrial flutter Current Visit: Yes Status: Acute Per EP: -Previous records reviewed: "Recent A-Flutter with slow ventricular response diagnosis, unclear chronicity, persistent. On Norvasc and Losartan, but no BB. Avoid AV concha blockers. Seen by Dr. Silva outpt on 08/09. 2 week MCOT was pending. Monitoring company informed him of a pause of 13.5 seconds in atrial flutter. Pt is asymptomatic. Denies dizziness, lightheadedness, or syncope. [id number] 1 (HTN). Pt has frequent se izures with traumas, left sided paralysis, high falls and bleeding risk. Full AC has not been recommended". -Patient with MCOT with siginificant pauses noted. -S/p PPM yesterday for sick sinus syndrome. -Device check today normal functioning pacemaker. -Chest x-ray post device and this am without evidence of pneumothorax. -Left chest wall steri-strips clean, dry, intact. -Post device insertion management education reviewed with patient and family, state understanding. -Cardiology will sign off, will arrange close outpatient follow up. Qualifiers: Atrial flutter type: unspecified Qualified Code(s): I48.92 - Unspecified atrial flutter (2) Sick sinus syndrome Current Visit: Yes Status: Acute Per EP: -See above. Discussion w patient/family: The assessment and plan as outlined above was discussed with the patient and/or family members who expressed understanding and agreement. All questions were answered. Thank you for involving us in the care of your patient. Please call with any questions. Discussed and reviewed with Dr.John Garcia. Subjective Principal diagnosis: Sick sinus syndrome Interval history: Patient denies complaints today. S/p PPM yesterday. Objective Vital Signs, Last 4 Hours Temp Pulse Resp BP Pulse Ox 08/14/19 07:48 97.8 F 59 18 138/103 92 General: Conversant, No Apparent Distress HEENT: Atraumatic, Normocephaly, Mucus Membranes Moist Neck: No JVD, Normal carotid pulses Cardiac: Reg Rate and Rhythm, Normal S1 and S2, No Murmur Lungs: Normal Breath Sounds, No Wheeze, Rales, Rhonchi Neuro: Alert and responsive, No focal deficits noted Abdomen: Soft, Non-Tender Skin: No rashes noted on visualized skin, Other (Left sided chest wall steri- strips clean, dry, intact. ) Musculoskeletal: No Chest Wall Tenderness Extremities: No Clubbing, No Cyanosis, No Edema, Normal Pulses Results 08/12/19 01:26 08/14/19 04:42 Lab Results Impressions Echocardiogram 08/13/19 10:17 Impressions: LVEF 60%. Indeterminate diastolic function. Mildly dilated right ventricle with normal systolic function. Mild tricuspid regurgitation. No pulmonary hypertension. Left Ventricular Wall Motion: Rest Echo Findings All wall segments showed normal motion. Findings: Study Quality * Technically sub-optimal due to clinical status. ECG Findings * Atrial flutter, slow VR. Left Ventricle * LVEF 60%. * Normal LV chamber size, wall thickness and systolic function. * Indeterminate diastolic function. Right Ventricle * Mildly dilated right ventricle with normal systolic function. Left Atrium * Normal left atrial size. Right Atrium * Normal right atrial size. Interatrial Septum * Interatrial septum not well evaluated. Aortic Valve * Aortic valve not well visualized. * No aortic stenosis. * No aortic regurgitation. Mitral Valve * Normal mitral valve structure. * No mitral stenosis. * Trace mitral regurgitation. Tricuspid Valve * Normal tricuspid valve structure. * No tricuspid stenosis. * Mild tricuspid regurgitation. * Estimated RVSP is 23 mmHg. * Estimated RA pressure is 15 mmHg. * No pulmonary hypertension. Pulmonic Valve * Pulmonic valve is not well visualized. * No pulmonic stenosis. * No pulmonic regurgitation. Aorta * Normally sized aortic root. Pericardium * The pericardium appears normal. IVC * The IVC is dilated. * < 50% respiratory change. Chest X-Ray 08/13/19 15:11 IMPRESSION: 1. No acute cardiopulmonary disease. 2. Placement of a left-sided cardiac device. No pneumothorax. D/ / 08/13/2019 16:13:37 Ap Jefferson MD / Irais Pelaez Interpreting Provider: Ap Jefferson MD Chest X-Ray 08/14/19 08:50 IMPRESSION: *Satisfactory left-sided pacemaker placement without evidence of pneumothorax. *Bibasilar atelectasis. No consolidation or edema. *Likely COPD D/ / Gallito Moran MD / Gallito Moran MD Interpreting Provider: Gallito Moran MD Active Medications Acetaminophen (Tylenol) 650 mg PO Q4HR PRN PRN Reason: Mild Pain Stop: 02/12/20 14:51 Albuterol/Ipratropium (Duoneb) 3 ml IH [id number] DESTINI Stop: 02/11/20 22:01 Last Admin: 08/14/19 04:30 Dose: 3 ml Documented by: Amlodipine Besylate (Norvasc) 5 mg PO BID [facility]; Protocol Stop: 02/11/20 21:01 Last Admin: 08/14/19 07:38 Dose: 5 mg Documented by: Carbamazepine (Tegretol Xr) 300 mg PO TID DESTINI Stop: 02/11/20 21:01 Last Admin: 08/14/19 07:38 Dose: 300 mg Documented by: Labetalol HCl (Labetalol) 10 mg IVP Q4H PRN PRN Reason: Hypertension Stop: 02/12/20 17:27 Last Admin: 08/14/19 01:45 Dose: 10 mg Documented by: Levetiracetam (Keppra) 1,000 mg PO BID [facility] Stop: 02/11/20 21:01 Last Admin: 08/14/19 07:38 Dose: 1,000 mg Documented by: Losartan Potassium (Cozaar) 100 mg PO DAILY [facility] Stop: 02/12/20 09:01 Last Admin: 08/14/19 07:38 Dose: 100 mg Documented by: Naloxone HCl (Narcan) 0.4 mg IVP Q2MPRN PRN PRN Reason: SEE COMMENTS Stop: 02/11/20 00:29 Nicotine (Nicoderm) 21 mg TD DAILY [facility]; Protocol Stop: 02/12/20 09:01 Last Admin: 08/14/19 07:38 Dose: 21 mg Documented by: Oxycodone HCl (Roxicodone) 5 mg PO Q4HR PRN; Protocol PRN Reason: Severe Pain Stop: 02/12/20 14:51 Pharmacy Profile Note (Patient Taking Own Medication) 1 each IH DAILY [facility] Stop: 02/12/20 09:01 Last Admin: 08/14/19 07:39 Dose: Not Given Documented by: Sodium Chloride (Sodium Chloride) 1 gm PO TID DESTINI Stop: 02/11/20 21:01 Last Admin: 08/14/19 07:38 Dose: 1 gm Documented by: - Imaging and Cardiology Chest Xray: report reviewed Echo: report reviewed - EKG Interpretation EKG results cardiology: other (Telemetry reviewed with average HR previous 12 hours noted to be 63, a.flutter. Intermittent paced rhythm.) - VTE Documentation of Mechanical Device: Intermittent pneumatic compression device Consult Discharge Plan - Plan Instructions: Atrial Flutter (DC), Chronic Hypertension (DC) Additional Instructions: ACTIVITY: Moderate activity for the next 7 days. No lifting more than 5 pounds (gallon of milk) for 4-6 weeks. Avoid lifting your arm on the same side as the device for 4 weeks. BATHING /SHOWERING: Do not remove the large bandage over the site for 2 days. Do not allow the device to get wet for 7-10 days. You may bathe/shower, but do not use soap and water on the site. When bathing, keep the site dry by covering with Saran wrap or a towel. WOUND CARE: The white steri-strips will start to peel away and come off after 14 days, or your doctor will remove them after [address] into or on top of the incision. Do not use cotton swabs. Do not use any antibiotic ointment or Vitamin E on the site. REMINDERS: You may use electrical devices, such as, microwaves, hair dryers, electric razors, electric blankets, etc. as long as they are in good condition and kept 6-8 inches away from the device. It is recommended to use cell phones on the opposite side of your device. Notify security personnel at the airport that you have a device before you go through airport security screening. When at places with security monitors, such as a grocery store, do not linger near these monitors. It is fine to walk past them in a normal manner. Refer to your owners manual for more specific directions. CARRY YOUR PACEMAKER/ICD CARD WITH YOU AT ALL TIMES Return to work as instructed per physician Resume driving as instructed per physician Keep all scheduled follow up appointments Resume medications as instructed Contact [facility] ( ) if: You develop excessive bleeding from insertion or wound site not controlled by applying pressure You develop a fever greater than 101 degrees Fahrenheit Your incision becomes reddened at or around the site Your incision develops yellowish or greenish drainage or development of white pimple-like bumps You experience excessive pain You develop swelling in your ankles You experience muscle switching You develop excessive hiccupping If you experience chest pain, shortness of breath, dizziness, or extreme tiredness, stop the activity and rest. Please notify [facility] office if you experience any of these symptoms and they are not relieved by rest please call 911! Referrals: Roddy Garcia MD [Partnered Physician] - NONE,PCP [Primary Care Provider] -
[2019-08-14] MEDS ORDERED: FLU Vac QV 19-20 (6Month+)/PF 0.5 ML SYRINGE IM ONE (10:28)
== END 2019-08-14 11:14 | disposition home or self-care (01) | DRG 243 ==
LOC: 2NNU → SUATTDRO 23:46
PROVIDERS: ADMIT Internal Medicine; ATTEND Internal Medicine

== ENCOUNTER 2022-02-21 07:39 | Inpatient (IN) ==
[2022-02-21] MEDS ORDERED: Mag Hydrox/Al Hydrox/Simeth 30 ML UDC PO PRN (10:01)
[2022-02-21] MEDS ORDERED: MOM Conc 10 ML UD.LIQ PO PRN (10:01)
[2022-02-21] MEDS ORDERED: Naloxone 0.4 MG/ML INJ IVP PRN (10:01)
[2022-02-21] MEDS ORDERED: Melatonin 3 MG TABLET PO PRN (10:01)
[2022-02-21] MEDS ORDERED: Azithromycin 500 MG in 0.9 % Sodium Chloride 250 ML IVPB SCH ×2 (11:00→12:00)
[2022-02-21] MEDS: CarBAMazepine XR (12 hr) 100 MG TAB PO SCH ×3 (13:44→20:50)
[2022-02-21] MEDS: *HR* Heparin 5,000 UNIT/ML VIAL SQ SCH ×2 (13:44→20:52)
[2022-02-21] MEDS: amLODIPine 5 MG TABLET PO SCH (13:44)
[2022-02-21] MEDS: hydrALAZINE 25 MG TABLET PO SCH (14:48)
[2022-02-21] MEDS: Albuterol Neb 0.63 MG/3 ML VIAL IH SCH ×2 (14:53→23:28)
[2022-02-21] MEDS: Ondansetron 4 MG/2 ML VIAL IVP PRN (17:19)
[2022-02-21] MEDS: levETIRAcetam 250 MG TABLET PO SCH (20:50)
[2022-02-21] MEDS: Gabapentin 300 MG CAPSULE PO SCH (20:51)
[2022-02-22] MEDS: *HR* Heparin 5,000 UNIT/ML VIAL SQ SCH ×3 (05:16→21:57)
[2022-02-22 06:54] LABS: Hematocrit 34.5 % (37.5-50.1); Hemoglobin 11.4 g/dL (12.9-16.9); Mean Corpuscular Hemoglobin 30.2 pg (28.0-33.3); Mean Corpuscular Volume 91.5 fL (83.0-100.0); Mean Platelet Volume 9.4 fL (9.4-12.4); Platelet Count 204 K/mcL (140-400); Red Blood Count 3.77 M/mcL (4.19-5.50); Red Cell Distribution Width 14.8 % (11.5-14.5); White Blood Count 6.8 K/mcL (4.3-11.1)
[2022-02-22 07:03] LABS: INR 1.1; Prothrombin Time 11.9 Seconds (9.4-12.1)
[2022-02-22 07:06] LABS: Activated Partial Thrombo Time 29.7 Seconds (26.0-36.0)
[2022-02-22 07:16] LABS: BUN/Creatinine Ratio 25 (6-26); Blood Urea Nitrogen 15 mg/dL (6-20); Calcium 8.7 mg/dL (8.6-10.3); Carbon Dioxide 25 mEq/L (23-29); Chloride 103 mEq/L (98-107); Glucose 106 mg/dL (70-105); Magnesium 2.1 mg/dL (1.6-2.6); Osmolality,Calculated 281 (280-300); Phosphorous 2.8 mg/dL (2.7-4.5); Potassium 4.2 mEq/L (3.5-5.1); Sodium 135 mEq/L (136-145); eGFR For African Americans > 60 (> 60); eGFR For Non-African Americans > 60 (> 60)
[2022-02-22] MEDS: Ondansetron 4 MG/2 ML VIAL IVP PRN (07:40)
[2022-02-22] MEDS: CarBAMazepine XR (12 hr) 100 MG TAB PO SCH ×4 (08:59→19:28)
[2022-02-22] MEDS: hydrALAZINE 25 MG TABLET PO SCH (09:00)
[2022-02-22] MEDS: Gabapentin 300 MG CAPSULE PO SCH ×2 (09:00→19:28)
[2022-02-22] MEDS: amLODIPine 5 MG TABLET PO SCH ×2 (09:00→19:28)
[2022-02-22] MEDS: levETIRAcetam 250 MG TABLET PO SCH ×2 (09:00→19:28)
[2022-02-22] MEDS ORDERED: cefTRIAXone 1,000 MG in 0.9 % Sodium Chloride 10 ML IVP SCH (09:00)
[2022-02-22] MEDS: Albuterol Neb 0.63 MG/3 ML VIAL IH SCH ×3 (10:42→22:45)
[2022-02-22] MEDS ORDERED: Perflutren Lipid Microsphere 1.3 ML in 0.9 % Sodium Chloride 8.7 ML IVP PRN (14:32)
[2022-02-23] MEDS: *HR* Heparin 5,000 UNIT/ML VIAL SQ SCH ×3 (05:29→20:59)
[2022-02-23 05:32] LABS: Basophils % 0.8 %; Hematocrit 34.2 % (37.5-50.1); Hemoglobin 11.4 g/dL (12.9-16.9); Immature Granulocytes % 0.2 % (0-4); Lymphocytes # 1.2 K/mcL (0.6-4.6); Lymphocytes % 24.8 %; Mean Corpuscular HGB Conc 33.3 g/dL (31.6-35.5); Mean Corpuscular Hemoglobin 30.8 pg (28.0-33.3); Mean Corpuscular Volume 92.4 fL (83.0-100.0); Mean Platelet Volume 9.4 fL (9.4-12.4); Monocytes # 0.6 K/mcL (0.0-1.3); Platelet Count 206 K/mcL (140-400); Red Cell Distribution Width 14.6 % (11.5-14.5); Segmented Neutrophils % 61.2 %; White Blood Count 4.9 K/mcL (4.3-11.1)
[2022-02-23 05:53] LABS: BUN/Creatinine Ratio 22 (6-26); Blood Urea Nitrogen 14 mg/dL (6-20); Calcium 8.7 mg/dL (8.6-10.3); Carbon Dioxide 24 mEq/L (23-29); Chloride 100 mEq/L (98-107); Glucose 98 mg/dL (70-105); Magnesium 1.9 mg/dL (1.6-2.6); Osmolality,Calculated 276 (280-300); Phosphorous 2.9 mg/dL (2.7-4.5); Potassium 4.1 mEq/L (3.5-5.1); Sodium 133 mEq/L (136-145); eGFR For African Americans > 60 (> 60); eGFR For Non-African Americans > 60 (> 60)
[2022-02-23] MEDS ORDERED: Regadenoson 0.4 MG/5 ML SYRINGE IVP ONE (05:57)
[2022-02-23] MEDS: Albuterol Neb 0.63 MG/3 ML VIAL IH SCH ×3 (07:24→23:48)
[2022-02-23] MEDS: Gabapentin 300 MG CAPSULE PO SCH ×2 (10:12→20:59)
[2022-02-23] MEDS: levETIRAcetam 250 MG TABLET PO SCH ×2 (10:12→20:58)
[2022-02-23] MEDS: hydrALAZINE 25 MG TABLET PO SCH (10:12)
[2022-02-23] MEDS: amLODIPine 5 MG TABLET PO SCH ×2 (10:12→20:59)
[2022-02-23] MEDS: CarBAMazepine XR (12 hr) 100 MG TAB PO SCH ×4 (10:13→20:59)
[2022-02-24 04:16] LABS: Basophils % 0.7 %; Hematocrit 32.7 % (37.5-50.1); Hemoglobin 10.7 g/dL (12.9-16.9); Immature Granulocytes % 0.2 % (0-4); Lymphocytes # 1.2 K/mcL (0.6-4.6); Lymphocytes % 30.2 %; Mean Corpuscular HGB Conc 32.7 g/dL (31.6-35.5); Mean Corpuscular Hemoglobin 30.2 pg (28.0-33.3); Mean Corpuscular Volume 92.4 fL (83.0-100.0); Mean Platelet Volume 9.5 fL (9.4-12.4); Monocytes # 0.6 K/mcL (0.0-1.3); Monocytes % 14.4 %; Neutrophils # 2.2 K/mcL (1.6-8.9); Platelet Count 189 K/mcL (140-400); Red Blood Count 3.54 M/mcL (4.19-5.50); Red Cell Distribution Width 14.3 % (11.5-14.5); Segmented Neutrophils % 54.5 %
[2022-02-24 04:38] LABS: BUN/Creatinine Ratio 25 (6-26); Blood Urea Nitrogen 14 mg/dL (6-20); Calcium 8.3 mg/dL (8.6-10.3); Carbon Dioxide 25 mEq/L (23-29); Chloride 100 mEq/L (98-107); Glucose 98 mg/dL (70-105); Magnesium 1.8 mg/dL (1.6-2.6); Osmolality,Calculated 274 (280-300); Phosphorous 3.1 mg/dL (2.7-4.5); Potassium 4.4 mEq/L (3.5-5.1); Sodium 132 mEq/L (136-145); eGFR For African Americans > 60 (> 60); eGFR For Non-African Americans > 60 (> 60)
[2022-02-24] MEDS: *HR* Heparin 5,000 UNIT/ML VIAL SQ SCH ×2 (05:00→14:50)
[2022-02-24] MEDS: Albuterol Neb 0.63 MG/3 ML VIAL IH SCH ×2 (07:04→15:17)
[2022-02-24] MEDS: hydrALAZINE 25 MG TABLET PO SCH ×2 (08:07→10:26)
[2022-02-24] MEDS: Gabapentin 300 MG CAPSULE PO SCH ×2 (08:07→10:25)
[2022-02-24] MEDS: levETIRAcetam 250 MG TABLET PO SCH ×3 (08:07→22:29)
[2022-02-24] MEDS: amLODIPine 5 MG TABLET PO SCH ×2 (08:08→10:26)
[2022-02-24] MEDS: CarBAMazepine XR (12 hr) 100 MG TAB PO SCH ×3 (08:08→14:50)
[2022-02-24] MEDS ORDERED: Isovue-300 50ML VIAL ONE (11:26)
[2022-02-24] MEDS ORDERED: *HR* Propofol 200 MG/20 ML VIAL IVP ONE (11:32)
[2022-02-24] MEDS ORDERED: *HR* FentaNYL (PF) 100 MCG/2 ML VIAL ONE (11:32)
[2022-02-24] MEDS ORDERED: *HR* Midazolam HCl 2 MG/2 ML VIAL ONE (11:32)
[2022-02-24] MEDS ORDERED: Lidocaine -MPF 2% 5 ML VIAL ONE (11:32)
[2022-02-24] MEDS ORDERED: *HR* Rocuronium Bromide 50 MG/5 ML VIAL ONE ×2 (11:32→13:09)
[2022-02-24] MEDS ORDERED: Ondansetron 4 MG/2 ML VIAL ONE (11:32)
[2022-02-24] MEDS ORDERED: Ketamine HCL *QUVA* 50mg (1mL) SYRINGE ONE (11:33)
[2022-02-24] MEDS ORDERED: Lidocaine HCL 4 ML Topical Solution (Laryng-O-Jet Kit Sterile Pak) TP ONE (11:36)
[2022-02-24] MEDS ORDERED: Ringers Solution, Lactated 1,000 ML IVC SCH ×2 (12:15→15:50)
[2022-02-24] MEDS ORDERED: Ipratropium/Albuterol Neb 3 ML ONE (12:19)
[2022-02-24] MEDS ORDERED: *HR* FentaNYL (PF) 100 MCG/2 ML VIAL IVP PRN (12:19)
[2022-02-24] MEDS: Albuterol 2.5 MG/3 ML NEBULIZER IH PRN ×2 (12:21→12:23)
[2022-02-24] MEDS ORDERED: Sugammadex Sodium 200 MG/2 ML VIAL IV ONE (13:39)
[2022-02-24] MEDS ORDERED: Acetaminophen IV 1,000 MG/100 ML BAG IVPB ONE ×2 (13:59→14:03)
[2022-02-24] MEDS ORDERED: *HR* OxyCODONE Immed Rel 5 MG TABLET PO PRN (15:50)
[2022-02-24] MEDS: CeFAZolin 2 GM/100 ML BAG IVPB SCH ×2 (16:33→23:56)
[2022-02-24] MEDS: Ipratropium/Albuterol Neb 3 ML IH SCH (18:11)
[2022-02-24] MEDS: CarBAMazepine 100 MG TABLET PO SCH (23:56)
[2022-02-25] MEDS: Ipratropium/Albuterol Neb 3 ML IH SCH ×2 (05:38→10:38)
[2022-02-25] MEDS: CarBAMazepine 100 MG TABLET PO SCH (06:10)
[2022-02-25] MEDS: levETIRAcetam 250 MG TABLET PO SCH (07:54)
[2022-02-25 09:01] LABS: Hematocrit 35.6 % (37.5-50.1); Hemoglobin 11.9 g/dL (12.9-16.9)
[2022-02-25 09:17] LABS: Magnesium 1.9 mg/dL (1.6-2.6)
[2022-02-25 09:18] LABS: BUN/Creatinine Ratio 12 (6-26); Blood Urea Nitrogen 7 mg/dL (6-20); Calcium 8.8 mg/dL (8.6-10.3); Carbon Dioxide 31 mEq/L (23-29); Chloride 96 mEq/L (98-107); Glucose 110 mg/dL (70-105); Osmolality,Calculated 275 (280-300); Sodium 133 mEq/L (136-145); eGFR For African Americans > 60 (> 60); eGFR For Non-African Americans > 60 (> 60)
[2022-02-25 10:38] VITALS: BP 102/67; PULSE 60; TEMP 97.9
[2022-02-25 10:53] VITALS: O2SAT 88
== END 2022-02-25 13:20 | disposition home or self-care (01) | DRG 515 ==
LOC: 4WAOSI → SUATTDRO 09:09
PROVIDERS: ADMIT Student in an Organized Health Care Education/Training Program; ATTEND Internal Medicine